=== PATIENT | female | born 1970 | race Two or more races ===

== ENCOUNTER 2021-11-19 20:19 | Emergency (ER) | payer SELFPAY ==
[~2021-11-19] VITALS: Ht 152.4 cm; Wt 63.5 kg
[2021-11-19 20:19] VITALS: BP 159/87
== END 2021-11-19 23:53 | disposition left against medical advice (07) ==
LOC: ER 20:19
DX: J02.9 Acute pharyngitis, unspecified (principal); R05.9 Cough, unspecified; Z53.21 Procedure and treatment not carried out due to patient leaving prior to being seen by health care provider

== ENCOUNTER 2023-02-26 16:14 | Inpatient (IN) | payer MEDICAID, OTHER ==
[~2023-02-26] VITALS: Ht 152.4 cm; Wt 58.7 kg
[2023-02-26] MEDS ORDERED: SODIUM CHLORIDE 0.9% 1,000 ML IVB ONE (16:45)
[2023-02-26] MEDS ORDERED: ONDANSETRON HCL 4 MG/2 ML VIAL IV ONE (16:45)
[2023-02-26] MEDS ORDERED: PANTOPRAZOLE 40 MG/10 ML VIAL INJ IV ONE (16:45)
[2023-02-26 17:05] LABS: Basophils # (auto) 0 10 ^3/uL (0-0.2); Basophils % (auto) 0.2 % (0.0-2.0); Eosinophils # (auto) 0 10 ^3/uL (0-0.8); Eosinophils % (auto) 0.2 % (0.0-7.0); Hematocrit 41.1 % (36.0-46.0); Hemoglobin 13.8 g/dL (12.2-16.2); Lymphocytes # (auto) 0.8 10 ^3/uL (0.4-5.4); Lymphocytes % (auto) 9.6 % (10.0-50.0); Mean Corpuscular Hemoglobin 28.1 pg (28.0-32.0); Mean Corpuscular Hgb Conc. 33.5 g/dL (32.0-36.0); Mean Corpuscular Volume 83.8 fL (80.0-100.0); Monocytes # (auto) 0.5 10 ^3/uL (0-1.3); Monocytes % (auto) 5.3 % (0.0-12.0); Neutrophils # (auto) 7.3 10 ^3/uL (1.6-8.6); Neutrophils % (auto) 84.7 % (37.0-80.0); Nucleated Red Blood Cells % 0.1 %; Red Cell Distribution Width 14.2 % (11.8-14.3); White Blood Cell 8.7 10^3/uL (4.4-10.8)
[2023-02-26 17:15] LABS: Urine Bacteria FEW /hpf (None Seen); Urine Blood Negative /uL (Negative); Urine Clarity HAZY (Clear); Urine Color Brown (Yellow); Urine Mucus FEW (None Seen); Urine Protein, UAD 1+ (Negative); Urine Specific Gravity 1.018 (1.001-1.035); Urine WBC 4 /hpf (0 - 5); Urine pH 5.5 (5.0-8.0)
[2023-02-26 17:29] LABS: Magnesium 2.1 mg/dL (1.6-2.6)
[2023-02-26 17:31] LABS: Alanine Aminotransferase 761 U/L (7-40); Albumin 4.8 g/dL (3.2-4.8); Alkaline Phosphatase 257 U/L (46-116); Anion Gap 8.1 (5-15); Aspartate Aminotransferase 395 U/L (13-40); BUN/Creatinine Ratio 11.6 (10.0-20.0); Blood Urea Nitrogen 10 mg/dL (9-23); Calcium 9.5 mg/dL (8.7-10.4); Carbon Dioxide 22.9 mmol/L (20-30); Chloride 105 mmol/L (98-107); Glucose 202 mg/dL (74-106); Potassium 4.2 mmol/L (3.5-5.1); Sodium 136 mmol/L (136-145)
[2023-02-26 17:32] LABS: Bilirubin, Total 4.2 mg/dL (0.2-1.0); Total Protein 7.6 g/dL (5.7-8.2)
[2023-02-26 17:56] LABS: Lipase > 3500 U/L (12-53)
[2023-02-26 20:58] VITALS: PULSE 66; RESP 24; O2SAT 94
[2023-02-26 23:00] VITALS: PULSE 57; RESP 18; O2SAT 95
[2023-02-26] MEDS ORDERED: MORPHINE SULFATE INJ 2 MG/ml SYRG IV PRN (23:15)
[2023-02-26] MEDS ORDERED: SODIUM CHLORIDE 0.9% 1,000 ML IV SCH (23:15)
[2023-02-26] MEDS ORDERED: ONDANSETRON HCL 4 MG/2 ML VIAL IV PRN (23:15)
[2023-02-27 00:34] VITALS: BP 150/71; PULSE 59; RESP 20; TEMP 97.9; O2SAT 94
[2023-02-27 00:35] VITALS: BP 150/71; PULSE 59; RESP 20; TEMP 97.9; O2SAT 95
[2023-02-27 01:31] LABS: Basophils # (auto) 0 10 ^3/uL (0-0.2); Basophils % (auto) 0.3 % (0.0-2.0); Eosinophils # (auto) 0 10 ^3/uL (0-0.8); Eosinophils % (auto) 0.2 % (0.0-7.0); Hematocrit 39.5 % (36.0-46.0); Lymphocytes # (auto) 1.2 10 ^3/uL (0.4-5.4); Lymphocytes % (auto) 17.9 % (10.0-50.0); Mean Corpuscular Hemoglobin 27.6 pg (28.0-32.0); Mean Corpuscular Volume 83.6 fL (80.0-100.0); Monocytes # (auto) 0.6 10 ^3/uL (0-1.3); Monocytes % (auto) 9.1 % (0.0-12.0); Neutrophils # (auto) 4.8 10 ^3/uL (1.6-8.6); Neutrophils % (auto) 72.5 % (37.0-80.0); Nucleated Red Blood Cells % 0.1 %; Red Blood Cells 4.73 10^6/uL (4.0-5.20); Red Cell Distribution Width 14.4 % (11.8-14.3); White Blood Cell 6.6 10^3/uL (4.4-10.8)
[2023-02-27 01:35] LABS: Alanine Aminotransferase 665 U/L (7-40); Albumin 4.3 g/dL (3.2-4.8); Alkaline Phosphatase 229 U/L (46-116); Anion Gap 6.4 (5-15); Aspartate Aminotransferase 317 U/L (13-40); BUN/Creatinine Ratio 9.7 (10.0-20.0); Bilirubin, Total 3.8 mg/dL (0.2-1.0); Blood Urea Nitrogen 7 mg/dL (9-23); Carbon Dioxide 24.6 mmol/L (20-30); Chloride 107 mmol/L (98-107); Glucose 128 mg/dL (74-106); Potassium 3.7 mmol/L (3.5-5.1); Sodium 138 mmol/L (136-145)
[2023-02-27 01:38] LABS: INR 0.98 (0.9-1.15); Prothrombin Time 10.3 sec (9.3-11.8)
[2023-02-27 01:42] LABS: Lipase 1453 U/L (12-53)
[2023-02-27 09:00] VITALS: BP 149/75; PULSE 63; RESP 16; TEMP 98; O2SAT 96
[2023-02-27 09:26] LABS: Hepatitis B Surface Antigen Negative (Negative)
[2023-02-27 09:47] LABS: Hepatitis C Antibody Negative (Negative)
[2023-02-27] MEDS: PANTOPRAZOLE 40 MG/10 ML VIAL INJ IV SCH (10:49)
[2023-02-27] MEDS ORDERED: HYDROmorphone HCL 2 MG/ML VL/or syr IV PRN (12:30)
[2023-02-27 13:00] VITALS: BP 118/73; PULSE 55; RESP 18; TEMP 98.6; O2SAT 98
[2023-02-27 13:50] LABS: Hepatitis A Ab IgM Negative; Hepatitis B Core IgM Negative
[2023-02-27 16:55] VITALS: BP 136/73; PULSE 61; RESP 16; TEMP 97.8; O2SAT 95
[2023-02-27] MEDS: SODIUM CHLORIDE 0.9% 1,000 ML IV SCH ×2 (17:20→20:30)
[2023-02-27] MEDS: CEFEPIME 1GM/ 50ML 50 ML IV SCH ×2 (18:01→21:18)
[2023-02-28] VITALS (7 sets, daily range): BP systolic 111–161; BP diastolic 69–87; PULSE 62–74; RESP 16–17; TEMP 97.9–98.5; O2SAT 95–97
[2023-02-28] MEDS: SODIUM CHLORIDE 0.9% 1,000 ML IV SCH ×3 (04:30→20:30)
[2023-02-28] MEDS: CEFEPIME 1GM/ 50ML 50 ML IV SCH ×3 (05:18→21:07)
[2023-02-28 07:33] LABS: Alanine Aminotransferase 667 U/L (7-40); Alkaline Phosphatase 253 U/L (46-116); Anion Gap 10.1 (5-15); BUN/Creatinine Ratio 14.1 (10.0-20.0); Blood Urea Nitrogen 10 mg/dL (9-23); Calcium 9.3 mg/dL (8.5-10.1); Carbon Dioxide 20.9 mmol/L (20-30); Chloride 105 mmol/L (98-107); Glucose 63 mg/dL (74-106); Magnesium 1.7 mg/dL (1.6-2.6); Potassium 4.5 mmol/L (3.5-5.1); Sodium 136 mmol/L (136-145)
[2023-02-28 07:34] LABS: Albumin 4.1 g/dL (3.2-4.8); Basophils # (auto) 0 10 ^3/uL (0-0.2); Basophils % (auto) 0.3 % (0.0-2.0); Eosinophils # (auto) 0.1 10 ^3/uL (0-0.8); Eosinophils % (auto) 1.4 % (0.0-7.0); Hematocrit 40.2 % (36.0-46.0); Hemoglobin 13.5 g/dL (12.2-16.2); Lymphocytes # (auto) 1.1 10 ^3/uL (0.4-5.4); Lymphocytes % (auto) 18.6 % (10.0-50.0); Mean Corpuscular Hemoglobin 28.3 pg (28.0-32.0); Mean Corpuscular Hgb Conc. 33.7 g/dL (32.0-36.0); Monocytes # (auto) 0.6 10 ^3/uL (0-1.3); Monocytes % (auto) 10.2 % (0.0-12.0); Neutrophils # (auto) 4.2 10 ^3/uL (1.6-8.6); Neutrophils % (auto) 69.5 % (37.0-80.0); Nucleated Red Blood Cells % 0.1 %; Red Blood Cells 4.78 10^6/uL (4.0-5.20); Red Cell Distribution Width 14.4 % (11.8-14.3); White Blood Cell 6.1 10^3/uL (4.4-10.8)
[2023-02-28 07:35] LABS: Aspartate Aminotransferase 246 U/L (13-40); Bilirubin, Total 3.8 mg/dL (0.2-1.0); Total Protein 6.9 g/dL (5.7-8.2)
[2023-02-28 07:41] LABS: Lipase 134 U/L (12-53)
[2023-02-28] MEDS: PANTOPRAZOLE 40 MG/10 ML VIAL INJ IV SCH (08:57)
[2023-02-28] MEDS: hydrALAZINE HCL 20 MG/ML VL IV PRN (15:53)
[2023-03-01] VITALS (7 sets, daily range): BP systolic 137–155; BP diastolic 73–94; PULSE 67–76; RESP 17–19; TEMP 97.8–98.4; O2SAT 94–97
[2023-03-01] MEDS: SODIUM CHLORIDE 0.9% 1,000 ML IV SCH ×3 (04:30→20:30)
[2023-03-01 04:50] LABS: Basophils # (auto) 0 10 ^3/uL (0-0.2); Basophils % (auto) 0.3 % (0.0-2.0); Eosinophils # (auto) 0.1 10 ^3/uL (0-0.8); Eosinophils % (auto) 2.1 % (0.0-7.0); Hematocrit 41.4 % (36.0-46.0); Hemoglobin 14.2 g/dL (12.2-16.2); Lymphocytes # (auto) 1.4 10 ^3/uL (0.4-5.4); Lymphocytes % (auto) 24.1 % (10.0-50.0); Mean Corpuscular Hemoglobin 28.7 pg (28.0-32.0); Mean Corpuscular Hgb Conc. 34.4 g/dL (32.0-36.0); Mean Corpuscular Volume 83.5 fL (80.0-100.0); Monocytes # (auto) 0.6 10 ^3/uL (0-1.3); Monocytes % (auto) 11.1 % (0.0-12.0); Neutrophils # (auto) 3.6 10 ^3/uL (1.6-8.6); Neutrophils % (auto) 62.4 % (37.0-80.0); Nucleated Red Blood Cells % 0.2 %; Red Blood Cells 4.96 10^6/uL (4.0-5.20); Red Cell Distribution Width 14.2 % (11.8-14.3); White Blood Cell 5.7 10^3/uL (4.4-10.8)
[2023-03-01 05:06] LABS: Alanine Aminotransferase 458 U/L (7-40); Alkaline Phosphatase 277 U/L (46-116); Anion Gap 8.8 (5-15); Aspartate Aminotransferase 90 U/L (13-40); BUN/Creatinine Ratio 17.9 (10.0-20.0); Blood Urea Nitrogen 12 mg/dL (9-23); Calcium 9.3 mg/dL (8.7-10.4); Carbon Dioxide 19.2 mmol/L (20-30); Chloride 106 mmol/L (98-107); Glucose 63 mg/dL (74-106); Magnesium 1.8 mg/dL (1.6-2.6); Potassium 3.9 mmol/L (3.5-5.1); Sodium 134 mmol/L (136-145)
[2023-03-01 05:07] LABS: Albumin 4.4 g/dL (3.2-4.8); Bilirubin, Total 1.8 mg/dL (0.2-1.0); Total Protein 7.4 g/dL (5.7-8.2)
[2023-03-01] MEDS: CEFEPIME 1GM/ 50ML 50 ML IV SCH ×3 (05:31→21:49)
[2023-03-01] MEDS: PANTOPRAZOLE 40 MG/10 ML VIAL INJ IV SCH (08:40)
[2023-03-01] MEDS: hydrALAZINE HCL 20 MG/ML VL IV PRN (13:11)
[2023-03-02] VITALS (7 sets, daily range): BP systolic 128–163; BP diastolic 71–96; PULSE 60–71; RESP 16–21; TEMP 36.9; O2SAT 94–98
[2023-03-02] MEDS: SODIUM CHLORIDE 0.9% 1,000 ML IV SCH ×2 (04:30→20:30)
[2023-03-02] MEDS: CEFEPIME 1GM/ 50ML 50 ML IV SCH ×3 (05:01→21:57)
[2023-03-02 06:55] LABS: Basophils # (auto) 0 10 ^3/uL (0-0.2); Basophils % (auto) 0.4 % (0.0-2.0); Eosinophils # (auto) 0.2 10 ^3/uL (0-0.8); Eosinophils % (auto) 2.7 % (0.0-7.0); Hematocrit 41.4 % (36.0-46.0); Hemoglobin 13.8 g/dL (12.2-16.2); Lymphocytes # (auto) 1.6 10 ^3/uL (0.4-5.4); Lymphocytes % (auto) 25.4 % (10.0-50.0); Mean Corpuscular Hemoglobin 28.3 pg (28.0-32.0); Mean Corpuscular Hgb Conc. 33.3 g/dL (32.0-36.0); Mean Corpuscular Volume 84.9 fL (80.0-100.0); Monocytes # (auto) 0.9 10 ^3/uL (0-1.3); Monocytes % (auto) 14.1 % (0.0-12.0); Neutrophils # (auto) 3.5 10 ^3/uL (1.6-8.6); Neutrophils % (auto) 57.4 % (37.0-80.0); Nucleated Red Blood Cells % 0.1 %; Red Blood Cells 4.88 10^6/uL (4.0-5.20); Red Cell Distribution Width 14.1 % (11.8-14.3); White Blood Cell 6.1 10^3/uL (4.4-10.8)
[2023-03-02 07:59] LABS: BUN/Creatinine Ratio 14.7 (10.0-20.0); Blood Urea Nitrogen 10 mg/dL (9-23); Glucose 85 mg/dL (74-106); Magnesium 1.9 mg/dL (1.6-2.6)
[2023-03-02 08:00] LABS: Alanine Aminotransferase 338 U/L (7-40); Albumin 4.1 g/dL (3.2-4.8); Alkaline Phosphatase 209 U/L (46-116); Anion Gap 8 (5-15); Aspartate Aminotransferase 52 U/L (13-40); Bilirubin, Total 1.6 mg/dL (0.2-1.0); Calcium 9.1 mg/dL (8.5-10.1); Carbon Dioxide 21 mmol/L (20-30); Chloride 108 mmol/L (98-107); Sodium 137 mmol/L (136-145)
[2023-03-02] MEDS: PANTOPRAZOLE 40 MG/10 ML VIAL INJ IV SCH (09:49)
[2023-03-02] MEDS: hydrALAZINE HCL 20 MG/ML VL IV PRN (21:57)
[2023-03-03] MEDS: SODIUM CHLORIDE 0.9% 1,000 ML IV SCH (04:30)
[2023-03-03 05:00] VITALS: BP 130/66; PULSE 63; RESP 19; TEMP 97.9; O2SAT 97
[2023-03-03] MEDS: CEFEPIME 1GM/ 50ML 50 ML IV SCH ×2 (05:39→13:46)
[2023-03-03 06:13] LABS: Alanine Aminotransferase 276 U/L (7-40); Albumin 4.3 g/dL (3.2-4.8); Alkaline Phosphatase 189 U/L (46-116); Anion Gap 7 (5-15); Aspartate Aminotransferase 49 U/L (13-40); BUN/Creatinine Ratio 10.7 (10.0-20.0); Bilirubin, Total 1.4 mg/dL (0.2-1.0); Blood Urea Nitrogen 8 mg/dL (9-23); Calcium 9.5 mg/dL (8.5-10.1); Carbon Dioxide 25 mmol/L (20-30); Chloride 107 mmol/L (98-107); Cholesterol 246 mg/dL (< 200); Glucose 101 mg/dL (74-106); HDL Cholesterol 25 mg/dL (40-59); LDL Cholesterol 172 mg/dL (< 100); Magnesium 1.9 mg/dL (1.6-2.6); Potassium 4.4 mmol/L (3.5-5.1); Sodium 139 mmol/L (136-145); Triglycerides 250 mg/dL (< 150)
[2023-03-03 06:14] LABS: Total Protein 7.1 g/dL (5.7-8.2)
[2023-03-03 06:33] LABS: Lipase 235 U/L (12-53)
[2023-03-03 06:43] LABS: Basophils # (auto) 0 10 ^3/uL (0-0.2); Basophils % (auto) 0.6 % (0.0-2.0); Eosinophils # (auto) 0.1 10 ^3/uL (0-0.8); Eosinophils % (auto) 2.7 % (0.0-7.0); Hematocrit 41.2 % (36.0-46.0); Lymphocytes # (auto) 1.6 10 ^3/uL (0.4-5.4); Lymphocytes % (auto) 29.5 % (10.0-50.0); Mean Corpuscular Hemoglobin 28.5 pg (28.0-32.0); Mean Corpuscular Hgb Conc. 33.9 g/dL (32.0-36.0); Monocytes # (auto) 0.7 10 ^3/uL (0-1.3); Neutrophils # (auto) 2.9 10 ^3/uL (1.6-8.6); Neutrophils % (auto) 54.2 % (37.0-80.0); Nucleated Red Blood Cells % 0.3 %; Red Blood Cells 4.91 10^6/uL (4.0-5.20); Red Cell Distribution Width 14.4 % (11.8-14.3); White Blood Cell 5.3 10^3/uL (4.4-10.8)
[2023-03-03 08:00] VITALS: BP 155/80; PULSE 69; PULSE 97; RESP 18; RESP 22; TEMP 36.9; O2SAT 96; O2SAT 97
[2023-03-03 08:50] VITALS: BP 146/82; PULSE 69; RESP 20; TEMP 98.2; O2SAT 97
[2023-03-03] MEDS: PANTOPRAZOLE 40 MG/10 ML VIAL INJ IV SCH (09:27)
[2023-03-03 13:00] VITALS: BP 159/85; PULSE 67; RESP 21; TEMP 98; O2SAT 97
[2023-03-03] MEDS: hydrALAZINE HCL 20 MG/ML VL IV PRN (13:46)
[2023-03-03 16:54] VITALS: BP 159/77; PULSE 66; RESP 20; TEMP 97.8; O2SAT 97
[2023-03-03 18:06] VITALS: BP 159/85; TEMP 36.6
== END 2023-03-03 18:57 | disposition home or self-care (01) ==
LOC: ER 16:14 → OVERFLOW 23:15 → WEST WING 23:37
PROVIDERS: ADMIT Nurse Practitioner; ATTEND Internal Medicine Geriatric Medicine
DX: K80.71 Calculus of gallbladder and bile duct without cholecystitis with obstruction (principal); K85.10 Biliary acute pancreatitis without necrosis or infection; K76.0 Fatty (change of) liver, not elsewhere classified; E78.2 Mixed hyperlipidemia; Z80.0 Family history of malignant neoplasm of digestive organs
CPT/HCPCS: 36415; 74181; 76705; 80053; 80061; 81001; 82140; 83690; 83735; 84484; 85025; 85610; 85730; 86705; 86709; 86803; 87340; 93005; C9113; G0378; J2405